=== PATIENT | female | born 1965 | race Caucasian/White ===

== ENCOUNTER → 2017-01-16 | Outpatient (REF) | payer OTHER | LOC: M SFHCWAGY 10:49 | PROVIDERS: ATTEND Nurse Practitioner Women's Health | DX: Z12.4 Encounter for screening for malignant neoplasm of cervix (principal) ==

== ENCOUNTER → 2017-03-22 | Outpatient (CLI) | payer OTHER ==
[~2017-03-22] MED LIST: ACET50TA PO; LORA10TA2 PO; NASA1SPR8; OMEP20CA3 PO; [UNRECOGNIZED DRUG - OTHER] PO
--- NOTE | 2017-03-22 10:34 | REP ---
NUCLEAR GASTRIC EMPTYING SCAN: Following the oral administration of 1.03 mCi of technetium 99m sulfur colloid in two scrambled eggs and 6 ounces of water, multiple images of the upper abdomen are performed in the anterior and posterior projections. Gastric activity is measured. At the end of 90 minutes, 34% of the ingested activity has emptied from the stomach. T1/2 is calculated to be 86 minutes. This is normal. IMPRESSION: Normal gastric emptying time. Signed by Andres Miner MD 03/22/2017 05:54 P
== END ==
LOC: M RAD 07:52
PROVIDERS: ATTEND Physician Assistant Medical
DX: R14.0 Abdominal distension (gaseous) (principal); R11.2 Nausea with vomiting, unspecified; R68.81 Early satiety

== ENCOUNTER → 2017-04-10 | Outpatient (CLI) | payer OTHER ==
[~2017-04-10] MED LIST changes: +GASTROGRAFIN SOLUTION 30ML (Q9963) As Ordered ONE; +ISOVUE-370 76% 100ML VIAL (Q9967) As Ordered ONE
--- NOTE | 2017-04-10 16:01 | REP ---
CT of the abdomen and pelvis without and with IV contrast for generalized abdominal pain, nausea and vomiting. Imaging is performed from the diaphragms to the pubic symphysis after IV contrast during the portal venous phase of enhancement. Imaging is performed for diaphragms to the iliac crests on the images prior IV contrast and on the delayed equilibrium images after IV contrast. There are no comparisons. The visualized lung gomez are unremarkable. The hepatic parenchyma, pancreas and spleen are homogeneous and unremarkable on all phases of the study. There are surgical clips in the gallbladder fossa. The pancreas and spleen are unremarkable. The adrenals and kidneys are unremarkable. The abdominal aorta is unremarkable. There is wall thickening of the descending colon and sigmoid colon. This is nonspecific and could be artifact from under distension or could be evidence for colitis in the appropriate clinical setting. The colon is otherwise unremarkable. Small bowel loops are unremarkable. Pelvis: The appendix is normal. The uterus, adnexa and urinary bladder are unremarkable. There is no adenopathy or ascites. Impression: There are findings compatible with colitis in the appropriate clinical setting. Otherwise this could be artifact from under distension of the colon. No ascites, adenopathy or mass. Otherwise, negative CT of the abdomen and pelvis. Signed by Andres Lopez MD 04/10/2017 03:52 P
== END ==
LOC: M RAD 12:21
PROVIDERS: ATTEND Physician Assistant Medical
DX: R10.84 Generalized abdominal pain (principal); R11.2 Nausea with vomiting, unspecified; Z80.0 Family history of malignant neoplasm of digestive organs
CPT/HCPCS: 74178; Q9963; Q9967

== ENCOUNTER 2017-04-13 10:58 | Outpatient (CLI) | payer OTHER ==
[~2017-04-13] VITALS: Ht 152.4 cm; Wt 93.0 kg
[~2017-04-13 10:58] MED LIST changes: -GASTROGRAFIN SOLUTION 30ML (Q9963) As Ordered ONE; -ISOVUE-370 76% 100ML VIAL (Q9967) As Ordered ONE
[2017-04-13] MEDS ORDERED: NS 1,000 ML IV ONE (11:15)
[2017-04-13] MEDS ORDERED: fentaNYL 100 MCG/2 ML INJECTION (J3010) As Ordered ONE (11:20)
[2017-04-13] MEDS ORDERED: LIDOCAINE 2% INJ 100 MG/5 ML SDV (FOR ANES.) As Ordered ONE (11:32)
[2017-04-13] MEDS ORDERED: PROPOFOL 200 MG/20 ML VIAL As Ordered ONE ×2 (11:32→11:40)
--- NOTE | 2017-04-13 11:33 | ROOR ---
Patient Name: Corina Mehta Procedure Date: 04/13/2017 11:17 AM Date of : 1965 Age: 51 Room: [facility] Gender: Female Note Status: Finalized Procedure: Upper GI endoscopy Indications: Epigastric abdominal pain Providers: Ba BAE MD Referring MD: Dio Obrien MD Requesting Provider: Medicines: Monitored Anesthesia Care Complications: No immediate complications. Procedure: Pre-Anesthesia Assessment: - The heart rate, respiratory rate, oxygen saturations, blood pressure, adequacy of pulmonary ventilation, and response to care were monitored throughout the procedure. The Endoscope was introduced through the mouth, and advanced to the second part of duodenum. The upper GI endoscopy was accomplished without difficulty. The patient tolerated the procedure well. Findings: Very small (insignificant) Hiatal Hernia. The esophagus was normal. The stomach was normal. The examined duodenum was normal. Impression: - Very small (insignificant) Hiatal Hernia. - Normal esophagus. - Normal stomach. - Normal examined duodenum. - No specimens collected. Recommendation: - Observe patient's clinical course. - Continue present medications. - Use Levsin, NuLev (hyoscyamine) 0.125 mg 1-2 tabs PO q 4 hours PRN. - (the script was sent to your pharmacy on file) Ba Bae MD Ba BAE MD 04/13/2017 11:33:21 AM This report has been signed electronically. Number of Addenda: 0 Note Initiated On: 04/13/2017 11:17 AM Estimated Blood Loss: Estimated blood loss: none.
--- NOTE | 2017-04-13 11:48 | ROOR ---
Patient Name: Corina Mehta Procedure Date: 04/13/2017 11:18 AM Date of : 1965 Age: 51 Room: [facility] Gender: Female Note Status: Finalized Procedure: Colonoscopy Indications: Suspected irritable bowel syndrome Providers: Ba BAE MD Referring MD: Dio Obrien MD Requesting Provider: Medicines: Monitored Anesthesia Care Complications: No immediate complications. Procedure: Pre-Anesthesia Assessment: - The heart rate, respiratory rate, oxygen saturations, blood pressure, adequacy of pulmonary ventilation, and response to care were monitored throughout the procedure. The Colonoscope was introduced through the anus and advanced to 5 cm into the ileum. The colonoscopy was performed without difficulty. The patient tolerated the procedure well. The quality of the bowel preparation was good. Findings: The perianal and digital rectal examinations were normal. A 5 mm polyp was found in the sigmoid colon. The polyp was pedunculated. The polyp was removed with a hot snare. Resection and retrieval were complete. The colon exam was otherwise normal throughout the examined colon. The terminal ileum appeared normal. Impression: - One 5 mm polyp in the sigmoid colon, removed with a hot snare. Resected and retrieved. - The colon was otherwise normal. - The examined portion of the ileum was normal. - (Irritable Bowel Syndrome/IBS suspected.) Recommendation: - Use Levsin, NuLev (hyoscyamine) 0.125 mg 1-2 tabs every q 4 hours as needed for abdominal bloating/pain. - (the script was sent to your pharmacy on file) - Return to referring physician as previously scheduled. - Telephone endoscopist for pathology results in 2 weeks. - Repeat colonoscopy in 3 years for surveillance. Ba Bae MD Ba BAE MD 04/13/2017 11:48:44 AM This report has been signed electronically. Number of Addenda: 0 Note Initiated On: 04/13/2017 11:18 AM Estimated Blood Loss: Estimated blood loss: none.
[2017-04-13 12:05] VITALS: BP 133/86
== END 2017-04-13 12:20 | disposition home or self-care (01) ==
LOC: M OPP 10:58
PROVIDERS: ATTEND Internal Medicine Gastroenterology
DX: D12.5 Benign neoplasm of sigmoid colon (principal); R10.13 Epigastric pain; K44.9 Diaphragmatic hernia without obstruction or gangrene; K21.9 Gastro-esophageal reflux disease without esophagitis; Z79.899 Other long term (current) drug therapy; Z79.51 Long term (current) use of inhaled steroids
CPT/HCPCS: 43235; 45385; 88305; J3010

== ENCOUNTER → 2017-10-24 | Outpatient (CLI) | payer OTHER | LOC: M LRY 13:10 | DX: M25.561 Pain in right knee (principal) | CPT/HCPCS: 73564 ==

== ENCOUNTER → 2018-01-25 | Outpatient (CLI) | payer OTHER | LOC: M EKG 12:19 | DX: Z01.818 Encounter for other preprocedural examination (principal); K21.9 Gastro-esophageal reflux disease without esophagitis; G47.9 Sleep disorder, unspecified; G43.909 Migraine, unspecified, not intractable, without status migrainosus | CPT/HCPCS: 93005 ==

== ENCOUNTER 2018-01-28 05:44 | Day surgery (SDC) | payer OTHER ==
[2018-01-28] MEDS ORDERED: ROPIvacaine 0.5% 30 ML INJECTION (J2795 PER 1MG) (05:45)
[2018-01-28] MEDS ORDERED: EPINEPHrine INJ 1 MG/ML 1ML AMP (05:45)
[2018-01-28] MEDS ORDERED: LIDOCAINE 1% MDV 20ML VIAL SQ (06:30)
[2018-01-28] MEDS: LR 1,000 ML IV ×2 (06:36→08:59)
[2018-01-28] MEDS ORDERED: fentaNYL 100 MCG/2 ML INJECTION (J3010) As Ordered ×2 (06:49→07:23)
[2018-01-28] MEDS ORDERED: MIDAZOLAM INJ 2 MG/2 ML VIAL (J2250) As Ordered ×2 (06:49→07:22)
[2018-01-28] MEDS: fentaNYL 100 MCG/2 ML INJECTION (J3010) IV ×2 (07:18→07:20)
[2018-01-28] MEDS: MIDAZOLAM INJ 2 MG/2 ML VIAL (J2250) IV ×2 (07:18→07:20)
[2018-01-28] MEDS ORDERED: PROPOFOL 200 MG/20 ML VIAL As Ordered (07:23)
[2018-01-28] MEDS ORDERED: LIDOCAINE 2% INJ 100 MG/5 ML SDV (FOR ANES.) As Ordered (07:23)
[2018-01-28] MEDS ORDERED: ONDANSETRON 4MG/2ML VIAL (J2405) As Ordered ×3 (07:37→08:49)
[2018-01-28] MEDS ORDERED: METOCLOPRAMIDE INJ 10MG/2ML VIAL (J2765) As Ordered (07:37)
[2018-01-28] MEDS: BUPIVACAINE HCL 0.5% 30 ML VIAL As Ordered (08:48)
[2018-01-28] MEDS ORDERED: dexameTHASONE 4 MG/ML 1ML VIAL (J1100) As Ordered ×2 (08:49)
[2018-01-28] MEDS ORDERED: KETOROLAC 60 MG/2 ML VIAL (J1885) As Ordered (08:50)
[2018-01-28] MEDS ORDERED: fentaNYL 100 MCG/2 ML INJECTION (J3010) IV (09:15)
[2018-01-28] MEDS ORDERED: METOCLOPRAMIDE INJ 10MG/2ML VIAL (J2765) IV (09:15)
[2018-01-28] MEDS ORDERED: MEPERIDINE INJ 25 MG/ML VIAL (J2175) IV (09:15)
[2018-01-28] MEDS ORDERED: PERCOCET 5MG/325MG TAB PO (09:15)
[2018-01-28] MEDS ORDERED: LR 1,000 ML IV (09:15)
[2018-01-28] MEDS: ONDANSETRON 4MG/2ML VIAL (J2405) IV (09:30)
[2018-01-28] MEDS ORDERED: ACETAMINOPHEN 500 MG TAB As Ordered (10:19)
[2018-01-28] MEDS: ACETAMINOPHEN 500 MG TAB PO (10:19)
== END 2018-01-28 12:30 | disposition home or self-care (01) ==
LOC: M SDC 05:44
DX: S83.241A Other tear of medial meniscus, current injury, right knee, initial encounter (principal); M17.11 Unilateral primary osteoarthritis, right knee; G47.30 Sleep apnea, unspecified; K21.9 Gastro-esophageal reflux disease without esophagitis; Z79.899 Other long term (current) drug therapy; Y92.9 Unspecified place or not applicable; Y93.9 Activity, unspecified
CPT/HCPCS: 29881

== ENCOUNTER → 2018-03-26 | Outpatient (REF) | payer OTHER | LOC: M SFHCWAGY 14:29 | DX: Z12.4 Encounter for screening for malignant neoplasm of cervix (principal) ==

== ENCOUNTER → 2019-03-27 | Outpatient (REF) | payer OTHER ==
[~2019-03-27] MED LIST changes: -ACET50TA PO; +CALC600T31 PO; +LORA-243 PO; -LORA10TA2 PO; +MAPA500T2 PO; -OMEP20CA3 PO; +OMEP20CA4 PO; +VITA10006 PO; +VITA100067 PO
== END ==
LOC: M SFHCWAGY 08:43
PROVIDERS: ATTEND Nurse Practitioner Women's Health
DX: Z12.4 Encounter for screening for malignant neoplasm of cervix (principal)

== ENCOUNTER → 2020-03-30 | Outpatient (REF) | payer OTHER ==
[~2020-03-30] MED LIST changes: +OMEP1CAP73 PO; -OMEP20CA4 PO
== END ==
LOC: M SFHCWAGY 09:48
PROVIDERS: ATTEND Nurse Practitioner Women's Health
DX: Z12.4 Encounter for screening for malignant neoplasm of cervix (principal)

== ENCOUNTER → 2020-07-21 | Outpatient (CLI) | payer OTHER ==
[~2020-07-21] MED LIST changes: +HYDR12.55 PO
== END ==
LOC: M LABSMTC 11:37
PROVIDERS: ATTEND Anesthesiology
DX: Z01.812 Encounter for preprocedural laboratory examination (principal); Z20.828 Contact with and (suspected) exposure to other viral communicable diseases

== ENCOUNTER 2020-07-26 12:27 | Day surgery (SDC) | payer OTHER ==
[~2020-07-26] VITALS: Ht 152.4 cm; Wt 95.3 kg
[2020-07-26] MEDS ORDERED: LIDOCAINE 2% 100MG/5ML SDV (FOR ANES.) As Ordered ONE (13:23)
[2020-07-26] MEDS ORDERED: propofoL 200 MG/20 ML VIAL As Ordered ONE ×2 (13:23→13:24)
[2020-07-26] MEDS ORDERED: fentaNYL 100 MCG/2 ML INJECTION (J3010) As Ordered ONE (13:23)
[2020-07-26] MEDS ORDERED: NS 1,000 ML IV ONE (14:30)
--- NOTE | 2020-07-26 14:43 | ROOR ---
Patient Name: Corina Mehta Procedure Date: 07/26/2020 2:31 PM Date of : 1965 Age: 54 Room: [facility] Gender: Female Note Status: Finalized Procedure: Upper GI endoscopy Indications: Heartburn Providers: Ba BAE MD Referring MD: Ann Laguerre Requesting Provider: Medicines: Monitored Anesthesia Care Complications: No immediate complications. Procedure: Pre-Anesthesia Assessment: - The heart rate, respiratory rate, oxygen saturations, blood pressure, adequacy of pulmonary ventilation, and response to care were monitored throughout the procedure. The Endoscope was introduced through the mouth, and advanced to the second part of duodenum. The upper GI endoscopy was accomplished without difficulty. The patient tolerated the procedure well. Findings: The examined esophagus was normal. Small Hiatal Hernia. The entire examined stomach was normal. The examined duodenum was normal. Impression: - Normal esophagus. - Small Hiatal Hernia. - Normal stomach. - Normal examined duodenum. - No specimens collected. Recommendation: - Observe patient's clinical course. - Follow an antireflux regimen. - Continue present medications. Procedure Code(s): --- Professional --- 08043, Esophagogastroduodenoscopy, flexible, transoral; diagnostic, including collection of specimen(s) by brushing or washing, when performed (separate procedure) Diagnosis Code(s): --- Professional --- R12, Heartburn CPT copyright 2019 [employer]. All rights reserved. The codes documented in this report are preliminary and upon brush hand review may be revised to meet current compliance requirements. Ba Bae MD Ba BAE MD 07/26/2020 2:42:57 PM Electronically signed by Ba BAE MD Number of Addenda: 0 Note Initiated On: 07/26/2020 2:31 PM Estimated Blood Loss: Estimated blood loss: none.
--- NOTE | 2020-07-26 14:59 | ROOR ---
Patient Name: Corina Mehta Procedure Date: 07/26/2020 2:32 PM Date of : 1965 Age: 54 Room: [facility] Gender: Female Note Status: Finalized Procedure: Colonoscopy Indications: High risk colon cancer surveillance: Personal history of colonic polyps, Family history of colon cancer Providers: Ba BAE MD Referring MD: Ann Laguerre Requesting Provider: Medicines: Monitored Anesthesia Care Complications: No immediate complications. Procedure: Pre-Anesthesia Assessment: - The heart rate, respiratory rate, oxygen saturations, blood pressure, adequacy of pulmonary ventilation, and response to care were monitored throughout the procedure. The Colonoscope was introduced through the anus and advanced to the cecum, identified by appendiceal orifice and ileocecal valve. The colonoscopy was performed without difficulty. The patient tolerated the procedure well. The quality of the bowel preparation was good. Findings: The perianal and digital rectal examinations were normal. Retroflexion in the right colon was performed. The entire examined colon appeared normal on direct and retroflexion views. Small Internal Hemorrhoids. Impression: - The entire colon is normal on direct and retroflexion views. - Small Internal Hemorrhoids. - No specimens collected. Recommendation: - Repeat colonoscopy in 5 years for surveillance. Procedure Code(s): --- Professional --- 89384, Colonoscopy, flexible; diagnostic, including collection of specimen(s) by brushing or washing, when performed (separate procedure) Diagnosis Code(s): --- Professional --- Z86.010, Personal history of colonic polyps Z80.0, Family history of malignant neoplasm of digestive organs CPT copyright 2019 [employer]. All rights reserved. The codes documented in this report are preliminary and upon integrative medicine physician review may be revised to meet current compliance requirements. Ba Bae MD Ba BAE MD 07/26/2020 2:58:46 PM Electronically signed by Ba BAE MD Number of Addenda: 0 Note Initiated On: 07/26/2020 2:32 PM Estimated Blood Loss: Estimated blood loss: none.
[2020-07-26 15:20] VITALS: BP 106/65
== END 2020-07-26 15:30 | disposition home or self-care (01) ==
LOC: M OPP 12:27
PROVIDERS: ATTEND Internal Medicine Gastroenterology
DX: Z12.11 Encounter for screening for malignant neoplasm of colon (principal); Z86.010 Personal history of colon polyps; Z80.0 Family history of malignant neoplasm of digestive organs; K64.8 Other hemorrhoids; K44.9 Diaphragmatic hernia without obstruction or gangrene; G47.30 Sleep apnea, unspecified; Z79.899 Other long term (current) drug therapy
CPT/HCPCS: 43235; 45378; J3010

== ENCOUNTER 2021-03-18 12:01 | Emergency (ER) | payer OTHER ==
[~2021-03-18] VITALS: Ht 152.4 cm; Wt 97.7 kg
[2021-03-18 12:01] VITALS: BP 160/90
== END 2021-03-18 20:06 | disposition left against medical advice (07) ==
LOC: M ED 12:01
DX: Z53.29 Procedure and treatment not carried out because of patient's decision for other reasons (principal)

== ENCOUNTER → 2021-07-05 | Outpatient (REF) | payer OTHER | LOC: M SFHCWAGY 13:37 | PROVIDERS: ATTEND Nurse Practitioner Women's Health | DX: Z12.4 Encounter for screening for malignant neoplasm of cervix (principal); N76.0 Acute vaginitis ==

== ENCOUNTER → 2023-07-06 | Outpatient (REF) | payer OTHER ==
[~2023-07-06] MED LIST changes: +[UNRECOGNIZED DRUG - CODE] PO; -[UNRECOGNIZED DRUG - OTHER] PO
== END ==
LOC: M LAB REF 13:21
PROVIDERS: ATTEND Nurse Practitioner Family
DX: N73.9 Female pelvic inflammatory disease, unspecified (principal)

== ENCOUNTER → 2023-07-18 | Outpatient (REF) | payer OTHER | LOC: M SFHCWAGY 13:00 | PROVIDERS: ATTEND Nurse Practitioner Family | DX: D12.9 Benign neoplasm of anus and anal canal (principal); N90.89 Other specified noninflammatory disorders of vulva and perineum ==

== ENCOUNTER → 2023-10-16 | Outpatient (CLI) | payer OTHER | LOC: M WHC 08:40 | PROVIDERS: ATTEND Nurse Practitioner Family | DX: Z12.31 Encounter for screening mammogram for malignant neoplasm of breast (principal) ==

== ENCOUNTER → 2023-10-16 | Outpatient (REF) | payer OTHER | LOC: M SFHCWAGY 12:53 | PROVIDERS: ATTEND Nurse Practitioner Family | DX: N73.9 Female pelvic inflammatory disease, unspecified (principal) ==

== ENCOUNTER → 2024-10-21 | Outpatient (REF) | payer OTHER ==
[2024-10-21 14:56] LABS: Trichomonas vaginalis (AMP) NOT DETECTED (NEGATIVE)
[2024-10-21 15:20] LABS: GC DNA AMPLIFICATION NEGATIVE (NEGATIVE)
== END ==
LOC: M SFHCWAGY 13:32
PROVIDERS: ATTEND Nurse Practitioner Family
DX: Z11.3 Encounter for screening for infections with a predominantly sexual mode of transmission (principal)

== ENCOUNTER → 2024-10-21 | Outpatient (CLI) | payer OTHER | LOC: M WHC 08:48 | PROVIDERS: ATTEND Nurse Practitioner Family | DX: Z12.31 Encounter for screening mammogram for malignant neoplasm of breast (principal) ==

== ENCOUNTER 2025-07-06 09:25 | Day surgery (SDC) | payer OTHER ==
[~2025-07-06] VITALS: Ht 152.4 cm; Wt 93.0 kg
[~2025-07-06 09:25] MED LIST changes: +CLOB5CR TOP; +FAMO20TA PO; +FLON1SPR; +VENTAER INH
[2025-07-06] MEDS ORDERED: LIDOCAINE 2% 100 MG/5 ML SDV (FOR ANES.) As Ordered ONE (10:54)
[2025-07-06 11:45] VITALS: BP 140/77; TEMP 97.1; O2SAT 96
== END 2025-07-06 11:58 | disposition home or self-care (01) ==
LOC: M OPP 09:25
PROVIDERS: ATTEND Internal Medicine Gastroenterology
DX: Z12.11 Encounter for screening for malignant neoplasm of colon (principal); K57.30 Diverticulosis of large intestine without perforation or abscess without bleeding; K64.8 Other hemorrhoids; Z80.0 Family history of malignant neoplasm of digestive organs; K44.9 Diaphragmatic hernia without obstruction or gangrene; R12 Heartburn; G47.30 Sleep apnea, unspecified; Z91.048 Other nonmedicinal substance allergy status; Z79.51 Long term (current) use of inhaled steroids; Z79.899 Other long term (current) drug therapy
CPT/HCPCS: 43235; 45378; J3010